=== PATIENT | female | born 1985 | race Caucasian/White ===

== ENCOUNTER 2018-05-11 12:47 | Inpatient (IN) | payer BC, OTHER ==
[2018-05-11] MEDS ORDERED: PENICILLIN 5 MU in NA CHLORIDE 0.9% 100 ML IV ONE (14:43)
[2018-05-11] MEDS ORDERED: Ringers Lactate 1,000 ML IV SCH (15:00)
[2018-05-11] MEDS ORDERED: PENICILLIN G POT 5 MU/100 ML IVPB IV ONE ×2 (15:00→16:00)
[2018-05-11] MEDS ORDERED: PENICILLIN G POT 5 MU/100 ML BAG IV ONE (15:21)
[2018-05-11] MEDS ORDERED: Ringers Lactate 1,000 ML IV PRN (15:29)
[2018-05-11 15:52] LABS: RPR Titer ND
[2018-05-11 15:56] LABS: Urine Appearance CLEAR; Urine Bilirubin NEGATIVE (NEG); Urine Blood NEGATIVE (NEG); Urine Color YELLOW; Urine Glucose NEGATIVE (NEG); Urine Protein NEGATIVE (NEG); Urine Specific Gravity 1.025 (1.005-1.030); Urine pH 6.5 (5.0-7.0)
[2018-05-11 15:58] LABS: Absolute Lymphocytes (CBC) 2.1 K/uL (0.7-4.9); Absolute Monocytes 0.8 K/uL (0.1-1.3); Absolute Neutrophil 7.3 K/uL (1.8-8.0); Basophils % 0.5 % (0-1.3); Hematocrit 33.2 % (36.0-45.0); Lymphocytes % 19.7 % (15.3-44.8); MCH 30.5 pg (27.0-35.0); MCV 89.5 fL (80-100); MPV 8.4 fL (7.6-11.3); Monocytes % 7.8 % (3.3-12.3); RBC Red Blood Cell Count 3.71 M/uL (3.86-4.86)
[2018-05-11 16:03] LABS: Urine Microscopic Reflex NO UMIC
[2018-05-11 16:17] VITALS: BMI 36.1
[2018-05-11] MEDS ORDERED: PENICILLIN 2.5 MU in NA CHLORIDE 0.9% 100 ML IV SCH ×2 (17:00→21:00)
[2018-05-11] MEDS ORDERED: LIDOCAINE 2% 20 ML MDV IV PRN (17:02)
[2018-05-11] MEDS ORDERED: METHYLERGONOVINE 0.2MG/ML AMP IM PRN (17:02)
[2018-05-11] MEDS ORDERED: PROMETHAZINE HCL 50 MG/ML AMP IM PRN (17:02)
[2018-05-11] MEDS ORDERED: BUTORPHANOL 1 MG/ML INJ IV PRN (17:02)
[2018-05-11] MEDS ORDERED: CARBOPROST TROME 250 MCG/ML IM PRN (17:02)
[2018-05-11] MEDS ORDERED: MEPERIDINE HCL 25 MG/0.5 ML IV PRN (17:02)
[2018-05-11] MEDS ORDERED: FENTANYL CITR 100 MCG/2 ML IV ONE ×2 (17:28→17:32)
[2018-05-11] MEDS ORDERED: ROPIVACAINE HCL 100 ML IV PRN ×2 (17:28→17:32)
[2018-05-11] MEDS ORDERED: ROPIVACAINE HCL 0.2% 20ML AMP SQ ONE (17:29)
[2018-05-11] MEDS ORDERED: ROPIVACAINE HCL 0.2% 20ML AMP SQ PRN (17:32)
[2018-05-11] MEDS ORDERED: OXYTOCIN/LR 20 UNIT/1,000 ML BAG IV SCH (18:00)
[2018-05-11 21:41] LABS: RPR (Rapid Plasma Reagin) NON-REACT (NON-REACT)
--- NOTE | 2018-05-11 21:41 | PREOPHP ---
Date of Admission: 05/11/2018 This is a 33-year-old female 2, para 1, 37 weeks, came in with complaint of rupture of membra michael. Nitrazine is negative. The patient is 5.5 to 6 cm. Baby still -1 station. Cervix still poste rior, but very soft, 70% to 80% effaced. Baby looks good on the monitor. We have started her on pen icillin prophylaxis. Right now, she is having minimal uterine activity. Options discussed with gloria ent including expectant management overnight and if she has not progressed in the morning, send her h ome versus augmentation. The patient has had her first dose of penicillin, which was in. Full discu ssion of options. She will be wanting epidural. If she comes in spontaneous labor, I doubt that she will have time for epidural. She is in probably prodromal labor at this point, but because she is s o dilated, we need to keep her overnight at minimum to see what happens instead of sending her home. Full discussion. PEDRO/ONDINA Voice ID: [id number]
[2018-05-12] MEDS: IBUPROFEN 200 MG TAB PO PRN ×2 (04:45→13:45)
[2018-05-12] MEDS ORDERED: ACETAMINOPHEN 500 MG TAB PO PRN (04:53)
[2018-05-12] MEDS ORDERED: Oxycodone HCl/Acetaminophen 1 TAB TAB PO PRN (04:55)
--- NOTE | 2018-05-12 05:02 | OP ---
Surgeon: Henri Chau MD Hospital Course: A 33-year-old 5, para 1, AB 3 at 37 weeks admitted in early labor, 5.5 cm on admission. Not having regular contractions, however. Thought she had ruptured membranes. Nitraz ine was negative, but during a period of observation, the patient changed another 0.5 cm. It was dec ided to augment. This was done at 6 cm, rupture of membranes, clear fluid. The patient went rapidly to complete. Had epidural anesthesia placed prior to getting uncomfortable. Second stage of 30 min utes or thereabouts spontaneous vaginal delivery of a 6 pounds, 15 ounce male , Apgars 9 and 9. Small first-degree laceration involving the right labia minora, 4 stitches, 2-0 chromic after local infiltration. Schultze delivery of the placenta, which was inspected and noted to be intact and nor mal. Blood loss 350 cc. The patient tolerated all procedures well. She is Rh positive, immune to R ubella. Final Diagnoses: Intrauterine gestation, 37 weeks. Spontaneous labor. Epidural anesthesia. Penici llin prophylaxis. PEDRO/SENAITL Voice ID: [id number] Report ID: [id number]
[2018-05-12] MEDS: Oxycodone HCl/Acetaminophen 1 TAB TAB PO PRN ×2 (18:10→22:40)
[2018-05-13] MEDS: IBUPROFEN 200 MG TAB PO PRN (00:20)
--- NOTE | 2018-05-13 02:49 | DS ---
Hospital Course: A 33-year-old 5, para 1, AB 3, 37 weeks, came in, in early labor, 5 cm on a dmission. Within observation time, went to 5.5 to 6. Delivered a 6-pound 15-ounce male after a short second stage. Apgars 9 and 9. Epidural anesthesia. Penicillin prophylaxis x2 during the l abor. Kuo delivery of the placenta, which was inspected and noted to be intact and normal. A 35 0 cc or less blood loss. Four stitches in the first-degree laceration of the right labia minora. Lo karla infiltration to augment the epidural. afebrile, ambulating and voiding. Lochia is no rmal. No post epidural problems. She has had her Tdap immunization. She is Rh positive and immune to Rubella. Will be dismissed either later this afternoon or tomorrow morning. To report back to my office in 6 weeks for followup. To report any temperature elevation of 100 degrees or greater, nimesh re pain, heavy bleeding, or any other type of abnormalities. Dismissed with tramadol for analgesia, although she knows this goes through the breast milk and may choose to take Motrin instead. Final Diagnoses: 1.Term intrauterine at 37 weeks. 2.Vaginal delivery. 3.Epidural anesthesia. 4.Penicillin prophylaxis. PEDRO/ONDINA Voice ID: [id number] Report ID: [id number]
[2018-05-13 07:56] VITALS: BP 106/58; TEMP 97.7
[2018-05-13] MEDS: Oxycodone HCl/Acetaminophen 1 TAB TAB PO PRN (07:57)
--- NOTE | 2018-05-13 11:23 | PN ---
The patient has had no problems overnight, is ready to go home. Baby, however, has an issue with yoshi irubin; we are awaiting the bilirubin level. If baby is dismissed, patient will go home this morning . If baby is kept, put under the bili lights, she will probably go into the hotel situation. Full d iscussion with the patient, but she has no problems or questions since yesterday. PEDRO/ONDINA Voice ID: [id number] Report ID: [id number]
[2018-05-14 04:25] LABS: HBsAG Nonreactive (Nonreactive)
== END 2018-05-13 10:20 | disposition home or self-care (01) | DRG 807 ==
LOC: L&D 12:47 → 2ND-WC 14:48 → OBSVTOIN 14:48
PROVIDERS: ADMIT Specialist; ATTEND Specialist
PROC: 10E0XZZ Delivery of Products of Conception, External Approach (ICD-10-PCS; principal; 2018-05-11)
PROC: 0HQ9XZZ Repair Perineum Skin, External Approach (ICD-10-PCS; 2018-05-11)
PROC: 10907ZC Drainage of Amniotic Fluid, Therapeutic from Products of Conception, Via Natural or Artificial Opening (ICD-10-PCS; 2018-05-11)
DX: O99.824 Streptococcus B carrier state complicating childbirth (principal); Z37.0 Single live birth; O70.0 First degree perineal laceration during delivery; Z3A.37 37 weeks gestation of pregnancy
CPT/HCPCS: 36415; 81003; 85025; 86592; 86901; 87340; 99218; J2175; J2210; J2590; J2795; J3010

== ENCOUNTER 2020-02-21 17:11 | Observation (INO) | payer BC, OTHER ==
[2020-02-21] MEDS ORDERED: MORPHINE 2 MG/ML SYR IV PRN (18:08)
[2020-02-21] MEDS ORDERED: ONDANSETRON 4 MG/2 ML VIAL IV PRN (18:09)
[2020-02-21 18:14] VITALS: BMI 34.3
[2020-02-21] MEDS: Ringers Lactate 1,000 ML IV SCH (18:27)
[2020-02-21] MEDS: ACETAMINOPHEN 325 MG TABLET PO PRN (23:20)
[2020-02-22] MEDS ORDERED: CEFAZOLIN/NS 1gm 1 GM/50 ML BAG IVPB SCH
[2020-02-22] MEDS ORDERED: CLINDAMYCIN IV 150 MG/ML (6 mL) VIAL ONE (00:33)
[2020-02-22] MEDS: CEFAZOLIN/SWI 1gm 1 GM/10 ML SYR IV SCH ×4 (00:34→17:01)
[2020-02-22] MEDS: CLINDAMYCIN INJ 900 MG in NA CHLORIDE 0.9% 50 ML IV SCH ×3 (00:35→17:01)
[2020-02-22] MEDS ORDERED: NA CHLORIDE 0.9% 50 ML ONE (00:37)
[2020-02-22] MEDS: Ringers Lactate 1,000 ML IV SCH ×2 (03:12→13:44)
[2020-02-22] MEDS: ACETAMINOPHEN 325 MG TABLET PO PRN (03:54)
[2020-02-22] MEDS ORDERED: CEFAZOLIN SODIUM 1 GM/VIAL ONE (06:23)
[2020-02-22] MEDS ORDERED: NA CHLORIDE 0.9% 100 ML ONE (06:29)
[2020-02-22] MEDS ORDERED: NA CIT/CITRIC AC 30 ML ORAL UDC ONE (09:35)
[2020-02-22] MEDS ORDERED: LIDOCAINE 2% MPF 5 ML VIAL ONE (09:37)
[2020-02-22] MEDS ORDERED: propofoL 200 MG/20 ML VIAL IV ONE ×2 (09:37→10:00)
--- NOTE | 2020-02-22 10:04 | P.OP ---
Credit Investigator: NONE,NONE Preoperative diagnosis: LEFT Breast Abscess Postoperative diagnosis: LEFT Breast Abscess Primary procedure: Incision and Drainage of LEFT Breast Abscess Anesthesia: MAC + Local Estimated blood loss: <10cc Specimen: Cultures Findings: Large multiloculated retroaerolar abscess ~8cm Complications: None Transferred to: Recovery Room Condition: Good
[2020-02-22] MEDS ORDERED: BUPIVACA 0.25%/EPI 0.0005%/PF 30 ML VIAL ONE (10:11)
[2020-02-22] MEDS ORDERED: ACETAMINOPHEN 325 MG TABLET PO PRN (10:14)
[2020-02-22 10:21] VITALS: O2SAT 99
[2020-02-22] MEDS ORDERED: CODEINE 30MG/APAP 300MG TAB PO PRN (10:22)
--- NOTE | 2020-02-22 10:27 | CON ---
A 35-year-old female 12 weeks with breast abscess, has been admitted, started on antibiotics , is n.p.o. She will have drainage of the abscess by Dr. Ivy later today. She works at [employer] hat should not incapacitated her or debilitate her. She should be able to return to work by mid week to late week. The patient knows the probiotics and yogurt and if she develops a yeast infection of course will handle that. She has been n.p.o. since 9 o'clock last night, knows it is important to st ay that way. Quite stable, no fever since admission. PEDRO/ONDINA Voice ID: [id number] Report ID: [id number]
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
--- NOTE | 2020-02-22 19:36 | OP ---
Date of Procedure: 02/22/2020 Surgeon: Colby Ivy MD, Preoperative Diagnosis: Left breast abscess. Postoperative Diagnosis: Left breast abscess. Procedure Performed: Incision and drainage of multiloculated left breast abscess. Anesthesia: MAC plus local. Estimated Blood Loss: Less than 10 mL. Specimens: Cultures. Findings: Large multiloculated retroareolar abscess approximately 8 cm round in size. Complications: None. Disposition: Transferred to recovery room in good condition. Procedure In Detail: After informed consent was obtained, the patient was brought to the operating r oom, prepped and draped. After adequate anesthesia was achieved, I inspected the area of the left br east approximately from the 1 o'clock to the 4 o'clock position, anesthetized the area appropriately and made a radial incision out at approximately 3 o'clock position down through subcutaneous tissues. Immediately encountered was an abscess with purulent foul odor abscess material, greenish in appear ance. This was cultured for both aerobic and anaerobic speciation. I then opened the incision for a pproximately 4 cm and digitized the area and found that this was in fact a multiloculated abscess ext ending to the retroareolar position all the way to the approximately 11 o'clock position beyond the n ipple. All loculations were broken up I should say. Electrocautery used to achieve hemostasis. The area was copiously irrigated multiple times until completely clear. All necrotic tissue was removed . I irrigated the area once again, good hemostasis was achieved, and therefore at this point, I pack ed the wound with 0.5 inch iodoform packing and a sterile dressing placed over top. The patient rowena rated the procedure well without evidence of complication, transferred to PACU in good condition. Al l counts were correct at the end of the case. TK/MODL Voice ID: [id number] Report ID: [id number]
[2020-02-22 21:02] VITALS: BP 125/61; TEMP 98.1
== END 2020-02-22 21:30 | disposition home or self-care (01) ==
LOC: 2ND 17:11 → UNDOADMOB 17:11 → 2ND 17:45
PROVIDERS: ADMIT Specialist; ATTEND Specialist
PROC: 0H9U0ZX Drainage of Left Breast, Open Approach, Diagnostic (ICD-10-PCS; principal; 2020-02-21)
DX: O91.111 Abscess of breast associated with pregnancy, first trimester (principal); O99.311 Alcohol use complicating pregnancy, first trimester; O99.321 Drug use complicating pregnancy, first trimester; F12.90 Cannabis use, unspecified, uncomplicated; Z3A.12 12 weeks gestation of pregnancy; Z87.891 Personal history of nicotine dependence; Z20.828 Contact with and (suspected) exposure to other viral communicable diseases
CPT/HCPCS: 19020; 87070; 87205; 87075; U0003; J2704 ×2; J0690 ×4; J7120 ×4; G0379; G0378 ×3

== ENCOUNTER 2020-08-26 11:24 | Inpatient (IN) | payer OTHER ==
[2020-08-26] MEDS ORDERED: PROMETHAZINE INJ 25 MG/ML AMP IM PRN ×2 (11:56)
[2020-08-26] MEDS ORDERED: METHYLERGONOVINE 0.2MG/ML AMP IM PRN (11:56)
[2020-08-26] MEDS ORDERED: BUTORPHANOL 1 MG/ML INJ IV PRN (11:56)
[2020-08-26] MEDS ORDERED: PENICILLIN G POT 5 MU/100 ML VIAL IV ONE (11:56)
[2020-08-26] MEDS ORDERED: CARBOPROST TROME 250 MCG/ML IM PRN (11:56)
[2020-08-26] MEDS ORDERED: Ringers Lactate 1,000 ML IV PRN (11:56)
[2020-08-26] MEDS ORDERED: Ringers Lactate 1,000 ML IV SCH (12:00)
[2020-08-26] MEDS ORDERED: OXYTOCIN/LR 20 UNIT/1,000 ML BAG IV SCH ×2 (12:00→16:00)
[2020-08-26] MEDS ORDERED: LIDOCAINE 1% MPF 30 ML VIAL ONE (13:01)
[2020-08-26 13:13] VITALS: BMI 37.9
[2020-08-26 13:21] LABS: Absolute Lymphocytes (CBC) 1.9 K/uL (0.7-4.9); Basophils % 0.3 % (0-1.3); Hematocrit 37.7 % (36.0-45.0); Lymphocytes % 18.9 % (15.3-44.8); MPV 7.8 fL (7.6-11.3); RBC Red Blood Cell Count 4.19 M/uL (3.86-4.86); Urine Appearance CLOUDY; Urine Bilirubin NEGATIVE (NEG); Urine Blood NEGATIVE (NEG); Urine Color YELLOW; Urine Glucose NEGATIVE (NEG); Urine Protein TRACE (NEG); Urine Urobilinogen 0.2 mg/dL (0.2-1.0); Urine pH 7.5 (5.0-7.0)
[2020-08-26 13:24] LABS: Urine Microscopic Reflex ORDER UMIC
[2020-08-26 13:59] LABS: Urine Bacteria >50 /HPF (<20); Urine RBC <5 /HPF (NONE SEEN)
[2020-08-26] MEDS ORDERED: FENTANYL CITR 100 MCG/2 ML ONE (15:31)
[2020-08-26] MEDS ORDERED: LIDOCAINE 1% MPF 5 ML VIAL ONE (15:32)
[2020-08-26] MEDS ORDERED: Oxycodone HCl/Acetaminophen 1 TAB TAB PO PRN (15:43)
[2020-08-26] MEDS ORDERED: BISACODYL 10 MG RECTAL SUPP PR PRN (15:43)
[2020-08-26] MEDS ORDERED: ACETAMINOPHEN 500 MG TAB PO PRN (15:43)
[2020-08-26] MEDS ORDERED: DOCUSATE NA/SENNA CONC 1 TAB PO PRN (15:43)
[2020-08-26] MEDS ORDERED: DIPHENHYDRAMINE 25 MG TAB/CAP PO PRN (15:43)
[2020-08-26] MEDS ORDERED: IBUPROFEN 600 MG TAB PO PRN (16:03)
[2020-08-26] MEDS ORDERED: PENICILLIN 2.5 MU in NA CHLORIDE 0.9% 100 ML IV SCH (17:00)
[2020-08-26] MEDS ORDERED: Ringers Lactate 1,000 ML IV ONE (17:18)
--- NOTE | 2020-08-26 18:39 | PREOPHP ---
Date of Admission: 08/26/2020 History Of Present Illness: This is a 35-year-old 5, para 2, 38 weeks gestation, positive st rep status. The patient has been noted to be dilated 6 cm in the office for about 2 weeks. Now, she is 8 cm and -1 station well applied. Because of her strep status and advanced dilation, the patient decided at this time to deliver, so that she can have adequate time to get penicillin prophylaxis an d before the delivery. It has been about an hour and 20 minutes since the penicillin dose has been i n. We just now performed rupture of membranes, clear fluid. We will start Pitocin and once we get f irm contractions, it should not take long. Family History: Paternal grandmother with ovarian cancer. Past Medical History: No previous surgeries. Allergies: NO ALLERGIES. Social History: Smokes very lightly prior to and during the . Physical Examination: HEENT: Clear. Pupils are equally round and reactive to light and accommodation. Conjunctivae well perfused. No oral, lingual, or buccal lesions. Chest and Lungs: Clear. Heart: Without murmurs, thrills, heaves, or rubs. Breasts: Without masses on previous visits. Abdomen: Term size. Pelvic: As stated. Vertex: -1 station, 8 cm, term size infant, female. Extremities: Clear without edema, cyanosis, or clubbing. Assessment And Plan: Positive beta strep status, advanced dilation, 38 weeks for stabiliza tion and delivery. PEDRO/ONDINA Voice ID: [id number]
[2020-08-26 22:10] LABS: RPR (Rapid Plasma Reagin) NON-REACT (NON-REACT)
--- NOTE | 2020-08-27 00:33 | OP ---
Surgeon: Henri Chau MD Kandice Marques is a 35-year-old 5, para 2, AB 2, 38 weeks with advanced cervical dilation 8 cm in the office, history of strep, was sent to Labor and Delivery, started on penicillin 1 hour at 10-15 minutes after the penicillin dose was in. She was started on Pitocin. Rupture of membranes wa s performed and she went rapidly to complete, probably about 25 minutes of actual labor. Spontaneous vaginal delivery of an estimated 8 pounds female, Apgars 9 and 9. No episiotomy. No laceration. S chultze delivery of the placenta, which inspected and noted to be intact and normal. Less than 350 c c blood loss. The patient tolerated all procedures well. She has been given a spinal block with fen tanyl by Dr. Stanley just prior to delivery. Final Diagnoses: Term intrauterine 38 weeks, 8 cm in the office. Positive history of stre p, vaginal delivery, strep prophylaxis, spinal block with fentanyl. NBC/MODL Voice ID: [id number] Report ID: [id number]
[2020-08-27] MEDS: Oxycodone HCl/Acetaminophen 1 TAB TAB PO PRN ×3 (01:50→17:05)
--- NOTE | 2020-08-27 10:19 | DS ---
35-year-old 5, para 2, at 38 weeks gestation, advanced cervical dilation, positive history of beta strep during this . The patient was delivered of a 7 pounds 11 ounces female, Apgars 9 and 9. No episiotomy. No laceration. Less than 350 cc blood loss with Schultze delivery of the p lacenta, which was inspected and noted to be intact and normal. She had 5 million units of penicilli n administered an hour and a half prior to delivery. She had spinal block anesthesia with fentanyl, has had no problems . The patient is afebrile, ambulating voiding. Lochia is normal. Flu and Tdap shots offered. She will be dismissed later this afternoon to report back to my office in 6 weeks for followup to report any temperature elevation of 100 degrees or greater, severe pain, heavy bleeding, or any other type of abnormalities. Request tramadol for analgesia. I was discussed the breast milk and has taken this in the past without problems. Final Diagnoses: Intrauterine gestation, 38 weeks, 8 cm dilated on admission, vaginal delivery, peni cillin prophylaxis, strep positive. COVID negative. Immunizations offered. PEDRO/ONDINA Voice ID: [id number] Report ID: [id number]
[2020-08-27 12:11] VITALS: TEMP 97.2
[2020-08-27 17:16] VITALS: BP 133/78
[2020-08-27] MEDS ORDERED: Tdap (Diph,Pertuss(Acell),Tet Vac) 0.5 ML SYR IMVAC ONE (17:38)
[2020-08-28 20:00] LABS: HBsAG Nonreactive (Nonreactive)
== END 2020-08-27 18:05 | disposition home or self-care (01) | DRG 807 ==
LOC: 2ND-WC 11:24
PROVIDERS: ADMIT Specialist; ATTEND Specialist
PROC: 10907ZC Drainage of Amniotic Fluid, Therapeutic from Products of Conception, Via Natural or Artificial Opening (ICD-10-PCS; principal; 2020-08-26)
PROC: 10E0XZZ Delivery of Products of Conception, External Approach (ICD-10-PCS; 2020-08-26)
PROC: 3E033VJ Introduction of Other Hormone into Peripheral Vein, Percutaneous Approach (ICD-10-PCS; 2020-08-26)
DX: O99.824 Streptococcus B carrier state complicating childbirth (principal); Z37.0 Single live birth; Z3A.38 38 weeks gestation of pregnancy; Z20.822 Contact with and (suspected) exposure to COVID-19; Z23 Encounter for immunization
CPT/HCPCS: 36415; 81003; 81015; 85025; 86592; 86901; 87077; 87086; 87088; 87186; 87340; 90471; 90715; J2210; J2540; J2590; J3010; J7120; U0003

== ENCOUNTER 2022-06-20 05:21 | Inpatient (IN) | payer BC ==
[~2022-06-20 05:21] MED LIST: BUTORPHANOL 1 MG/ML INJ IV PRN; CARBOPROST TROME 250 MCG/ML IM PRN; METHYLERGONOVINE 0.2MG/ML AMP IM PRN; OXYTOCIN/LR 20 UNIT/1,000 ML BAG IV SCH; PROMETHAZINE INJ 25 MG/ML AMP IM PRN; Ringers Lactate 1,000 ML IV PRN; Ringers Lactate 1,000 ML IV SCH
--- OUTSIDE RECORDS SUMMARY | 2022-06-20 05:24 | XMS REPORT | Continuity of Care Document ---
:1985 Author Organization [facility] t Address [address] [place] [address] Care Team Providers Name Role Phone Nakul Winchester Attending Clinician Unavailable Payers Payer Name Policy Type Policy Number Effective Date Expiration Date S dre Blue Cross 6 [id number] Common Spiri t [facility] Problems Condition Condition Condition Status Onset Resolution Last Treating Co mments Source Name Details Category Date Date Treatment Clinician Date [id number] Tobacco Problem Active Commo n use Spirit disorder - [facility] [id number] Alcohol Problem Active Common use Spirit disorder, - [facility] mild, [facility] [id number] Body mass Problem Active Com mon index Spirit [BMI] - [facility] 37.0-37.9, [facility] [id number] Pain, Problem Active Commo n [id number] joint, Spirit hand, - [facility] right [facility] [id number] MARY Problem Active Common (generaliz Spirit ed anxiety - [facility] disorder) [facility] [id number] Pain, Problem Active Commo n 215564 joint, Spirit hand, left - [facility] [id number] Other Problem Active Common obesity Spirit due to - [facility] excess [facility] [id number] Mixed Problem Active Common hyperlipid Spirit emia - [facility] [id number] Other Problem Active Common chronic Spirit pain - [facility] [id number] Carpal Problem Active Commo n [id number] tunnel Spirit syndrome - [facility] on both [facility] [id number] Bilateral Problem Active Comm on carpal Spirit tunnel - [facility] syndrome [facility] Allergies, Adverse Reactions, Alerts This patient has no known allergies or adverse reactions. Social History Social Habit Start Date Stop Date Quantity Comments Source Sex Assigned At Com mon Spirit - [facility] History of Tobacco Current Smoker Co mmon Spirit - [facility] Use [facility] Smoking Status Start Date Stop Date Source Current Smoker 2022-01-19 00:00:00 Common Spiri t - [facility] Medications Ordered Filled Start Stop Current Ordering Indication Dosage Frequency Signature Comments Components Source Medication Medication Date Date Medication? Clinician (SIG) Name Name Gabapentin Gabapentin No Gabapentin 300 MG 300 MG 300 MG No Gabapentin Gabapentin No Gabapentin 300 MG 300 MG 300 MG Vital Signs Vital Name Observation Time Observation Value Comments Source height 2022-01-18 15:00:00 63 [in_i] [facility] weight 2022-01-18 15:00:00 219 [lb_av] [facility] S [facility] bmi 2022-01-18 15:00:00 38.79 kg/m2 [facility] blood pressure 2022-01-18 15:00:00 130 mm[Hg] Common Spirit - systolic [facility] blood pressure 2022-01-18 15:00:00 84 mm[Hg] Common Spirit - diastolic [facility] height 2021-12-07 14:30:00 63 [in_i] [facility] weight 2021-12-07 14:30:00 211.6 [lb_av] Common Spirit - [facility] temperature 2021-12-07 14:30:00 97.9 [degF] [facility] S [facility] bmi 2021-12-07 14:30:00 37.48 kg/m2 [facility] oximetry 2021-12-07 14:30:00 100 % [facility] respiratory rate 2021-12-07 14:30:00 18 /min Comm on [facility] blood pressure 2021-12-07 14:30:00 115 mm[Hg] Common [facility] - systolic [facility] blood pressure 2021-12-07 14:30:00 64 mm[Hg] Common [facility] - diastolic [facility] Procedures This patient has no known procedures. Encounters Start End Encounter Admission Attending Care Care Encounter Source Date/Time Date/Time Type Type Clinicians Facility Department ID 2022-01-16 Outpatient Winchester, STLMLC STLMLC [id number] Common 11:48:02 [facility] [id number] [facility] 2021-12-07 Outpatient Winchester, STLMLC STLMLC [id number] Common 14:26:02 [facility] 2022-01-18 2022-01-18 OFFICE STLMLC STLMLC [id number] Co mmon 00:00:00 00:00:00 VISIT EST Spir it PT LEVEL 3 - [facility] 2021-12-07 2021-12-07 OFFICE STLMLC STLC [id number] Co mmon 00:00:00 00:00:00 VISIT Spirit ESTAB PT - [facility] LEVEL 4 [facility] Results This patient has no known results.
[2022-06-20 06:32] VITALS: BMI 37.5
[2022-06-20] MEDS ORDERED: FENTANYL/BUPIVACAINE/NS/PF 200 MCG/100 ML BAG EP PRN (06:53)
[2022-06-20] MEDS ORDERED: ROPIVACAINE HCL 0.2% 20ML AMP IV ONE (06:53)
[2022-06-20] MEDS ORDERED: LIDOCAINE 1% MPF 30 ML VIAL ONE (07:14)
[2022-06-20 07:15] LABS: Absolute Lymphocytes (CBC) 2.1 K/uL (0.7-4.9); MPV 8.2 fL (7.6-11.3); RBC Red Blood Cell Count 3.75 M/uL (3.86-4.86)
[2022-06-20] MEDS ORDERED: FENTANYL CITR 100 MCG/2 ML ONE (07:21)
[2022-06-20 07:23] LABS: Specific Gravity 1.017 (1.005-1.030); Urine Bilirubin NEGATIVE (Negative); Urine Blood 1+ (Negative); Urine Clarity Turbid (Clear); Urine Color Yellow (Yellow); Urine Glucose NEGATIVE (Negative); Urine Mucus Slight /HPF (None Seen); Urine Protein 1+ (Negative); Urine RBC 21-50 /HPF (None Seen); Urine Urobilinogen Normal (Normal)
--- NOTE | 2022-06-20 07:49 | PREOPHP ---
Date of Admission: 06/20/2022 History Of Present Illness: This is a 37-year-old, 5, para 3, 2 miscarriages, at 38 weeks ge station, history of cervical dilation early with her last , at 38 weeks and 1 or 2 days. Sh e was noted to be 8 cm in the office and sent for delivery. Today, the patient is again 8 cm, 70% ef faced, vertex, 0 station. FHTs normal. Vital signs stable. She is Rh positive, immune to rubella, negative strep. Family History: Paternal grandmother with ovarian cancer. Past Medical History: Left breast abscess. Allergies: NO ALLERGIES. Medications: She has been on gabapentin in the past, but stopped that as soon as the test was positive. Social History: Does not smoke cigarettes. Physical Examination: HEENT: Clear. Pupils equal, round, reactive to light and accommodation. Conjunctivae well perfused . No oral, lingual, or buccal lesions. Chest and Lungs: Clear. Heart: Without murmurs, thrills, heaves, rubs. Breasts: Without masses on previous visits. Abdomen: Term size. Extremities: Clear without edema, cyanosis, or clubbing. Pelvic Exam: As stated, 8 cm, 70% effaced, vertex, 0 station. Beatris mildly at this point. Assessment And Plan: The patient is wanting epidural. We need to get Anesthesia appear as soon as p ossible and get the epidural before she delivers. Anticipate delivery relatively soon. PEDRO/ONDINA Voice ID: [id number]
[2022-06-20] MEDS ORDERED: INFLUENZA VACCINE (for 6+ mo) 0.5 ML DOSE IMVAC ONE (08:00)
--- NOTE | 2022-06-20 08:25 | PN ---
Kandice has had her epidural now. She is quite comfortable. Baby looks good. She is now 9 cm, 90% to 100% effaced, 0 to possibly +1 station. She is on 6 milliunits of Pitocin, we will increase in t he next few minutes. Anticipate she will be ready to deliver fairly soon. PEDRO/ONDINA Voice ID: [id number] Report ID: [id number]
[2022-06-20] MEDS ORDERED: BISACODYL 10 MG RECTAL SUPP RC PRN (08:48)
[2022-06-20] MEDS ORDERED: DOCUSATE NA/SENNA CONC 1 TAB PO PRN (08:48)
[2022-06-20] MEDS ORDERED: ACETAMINOPHEN 500 MG TAB PO PRN (08:48)
[2022-06-20] MEDS ORDERED: Oxycodone HCl/Acetaminophen 1 TAB TAB PO PRN (08:48)
[2022-06-20] MEDS ORDERED: DIPHENHYDRAMINE 25 MG TAB/CAP PO PRN (08:48)
[2022-06-20] MEDS ORDERED: OXYTOCIN/LR 20 UNIT/1,000 ML BAG IV SCH (09:00)
--- NOTE | 2022-06-20 09:46 | OP ---
Surgeon: Henri Chau MD Procedure In Detail: A 37-year-old, 5, para 3, 38 weeks gestation, history of extreme cervic al dilation, prior labor, last at 38 weeks and 1 or 2 days. She was 8 cm in the office, wa s brought over and delivered at that point. Today, she is 8 cm on admission at 38 weeks. After epid ural was started, Pitocin was increased and within 30 minutes to 45 minutes, the patient was complete on the perineum basically 2 groups of pushes resulted in delivery of a term female, loose nuchal cor d, 7-pound range, Apgars 9 and 9. No episiotomy. No laceration. Schultze delivery of the placenta, which was inspected and noted be intact and normal. Less than 200 cc blood loss. Uterus contracted down well with IV drip Pitocin. The patient tolerated all procedures well. She is Rh positive, imm une to Rubella, negative strep. Final Diagnoses: Term intrauterine at 38 weeks, advanced cervical dilation 8 cm on admissi on, labor induction, vaginal delivery, epidural anesthesia. ABIGAILC/SENAITL Voice ID: [id number] Report ID: [id number]
[2022-06-20] MEDS: Oxycodone HCl/Acetaminophen 1 TAB TAB PO PRN (16:17)
[2022-06-20] MEDS: IBUPROFEN 600 MG TAB PO PRN (18:28)
[2022-06-20 22:10] LABS: RPR (Rapid Plasma Reagin) NON-REACT (NON-REACT)
[2022-06-21] MEDS: IBUPROFEN 600 MG TAB PO PRN ×2 (00:29→11:31)
[2022-06-21] MEDS: Oxycodone HCl/Acetaminophen 1 TAB TAB PO PRN (06:49)
[2022-06-21 08:05] VITALS: BP 107/67; TEMP 97.5
[2022-06-21] MEDS ORDERED: TDAP (DIPHTH,PERTUSS(ACELL),TET VAC) 0.5 ML VIAL IMVAC ONE ×2 (08:30→09:00)
--- NOTE | 2022-06-21 08:58 | DS ---
Kandice Marques is a 37-year-old 5, para 3, 2 miscarriages, 38 weeks' gestation, advanced ce rvical dilation, admitted 8 cm, started on light Pitocin augmentation. Rupture of membranes. Epidur al anesthesia was established, gave excellent benefit. Within an hour or thereabouts, she was comple te and on the perineum, delivered a 7 pounds 5 ounce female. Apgars 9 and 9. No episiotomy. No lac eration. Schultze delivery of the placenta, which was inspected and noted to be intact and normal. Less than 200 cc blood loss. Negative strep. , afebrile, ambulating, voiding. Lochia is normal. No postepidural problems. Request tramadol for afterpains. She knows this goes to the [place] milk, will take them judiciously. Rh positive. Immune to Rubella. Tdap and flu shots have been discussed. Final Diagnoses: Term intrauterine at 38 weeks, history of advanced cervical dilation with other pregnancies and continue with this 8 cm on admission. Vaginal delivery. Epidural a nesthesia. ABIGAILC/MODL Voice ID: [id number] Report ID: [id number]
[2022-06-23 03:05] LABS: HBsAG Nonreactive (Nonreactive)
== END 2022-06-21 13:25 | disposition home or self-care (01) | DRG 806 ==
LOC: 2ND-WC 05:21
PROVIDERS: ADMIT Specialist; ATTEND Specialist
PROC: 10E0XZZ Delivery of Products of Conception, External Approach (ICD-10-PCS; principal; 2022-06-20)
PROC: 3E0234Z Introduction of Serum, Toxoid and Vaccine into Muscle, Percutaneous Approach (ICD-10-PCS; 2022-06-20)
PROC: 3E033VJ Introduction of Other Hormone into Peripheral Vein, Percutaneous Approach (ICD-10-PCS; 2022-06-20)
DX: O69.81X0 Labor and delivery complicated by cord around neck, without compression, not applicable or unspecified (principal); O36.0930 Maternal care for other rhesus isoimmunization, third trimester, not applicable or unspecified; Z37.0 Single live birth; Z3A.38 38 weeks gestation of pregnancy; Z23 Encounter for immunization
CPT/HCPCS: 36415; 81001; 85025; 86592; 86901; 87086; 87088; 87340; J2001; J2210; J2590; J3010; J7120